=== PATIENT | male | born 1985 | race Caucasian/White ===

== ENCOUNTER 2016-07-31 02:53 | Emergency (ER) | payer SELFPAY ==
[2016-07-31 03:08] VITALS: BP 141/85; PULSE 68; RESP 16; TEMP 97.9
[2016-07-31] MEDS ORDERED: IBUPROFEN 800 MG TAB PO STA (03:20)
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
== END 2016-07-31 03:59 | disposition home or self-care (01) ==
LOC: SUPCPDRO 02:53 → EC 02:53
DX: T24.202A Burn of second degree of unspecified site of left lower limb, except ankle and foot, initial encounter (principal); F17.200 Nicotine dependence, unspecified, uncomplicated; X02.0XXA Exposure to flames in controlled fire in building or structure, initial encounter; Y99.0 Civilian activity done for income or pay; Y92.69 Other specified industrial and construction area as the place of occurrence of the external cause
CPT/HCPCS: 16020; 99283

== ENCOUNTER 2017-10-20 01:10 | Emergency (ER) | payer OTHER ==
--- NOTE | 2017-10-20 01:50 | ED ---
Wound/Laceration HPI - General Chief Complaint: Wound/Laceration Stated Complaint: Laceration-[facility] Time Seen by Provider: 10/20/17 01:24 Source: patient Mode of arrival: ambulatory Limitations: no limitations - History of Present Illness Initial Comments: 32-year-old male patient presents the emergency department for evaluation of laceration to the right middle finger. Patient states he was at work when he actually cut his finger on a saw. Patient states he is having significant pain to the finger but denies any difficulty with range of motion. Denies any numbness or tingling to the finger. Patient denies any use of blood thinners. Denies any other injuries. States his last tetanus vaccine was within 5 years. Patient denies any headache, neck pain, back pain, chest pain, shortness of breath, dizziness, weakness, abdominal pain, nausea, vomiting, or difficulties with bowel movements or urination. - Related Data Previous Rx's Medication Instructions Recorded SILVER sulfADIAZINE CREAM 1 applic TOPICAL BID PRN 10 Days 07/31/16 [Silvadene Cream] gram Allergies Allergy/AdvReac Type Severity Reaction Status Date / Time No Known Allergies Allergy Verified 10/20/17 01:16 Review of Systems ROS Statement: Those systems with pertinent positive or pertinent negative responses have been documented in the HPI. ROS Other: All systems not noted in ROS Statement are negative. Past Medical History Past Medical History: No Reported History History of Any Multi-Drug Resistant Organisms: MRSA Date of last positivie culture/infection: 2010 MDRO Source:: lower abdomen Past Surgical History: Hernia Repair Additional Past Surgical History / Comment(s): left inguinal hernia rx Past Psychological History: No Psychological Hx Reported Smoking Status: Former smoker Past Alcohol Use History: None Reported Past Drug Use History: None Reported General Exam Limitations: no limitations General appearance: alert, in no apparent distress, other (This is a well- developed, well-nourished adult male patient in no acute distress. Vital signs upon presentation are temperature 98.3F, pulse 60, respirations 18, blood pressure 125/73, pulse ox 98% on room air.) Respiratory exam: Present: normal lung sounds bilaterally. Absent: respiratory distress, wheezes, rales, rhonchi, stridor Cardiovascular Exam: Present: regular rate, normal rhythm, normal heart sounds. Absent: systolic murmur, diastolic murmur, rubs, gallop, clicks Extremities exam: Present: full ROM, normal capillary refill, other (There is a 3 cm laceration to the dorsal aspect of the right middle finger over the PIP joint. Patient has full range of motion against resistance to the finger. Skin is pink, warm, and dry. Cap refills less than 3 seconds. Radial pulses are 2+ and equal bilaterally.). Absent: normal inspection, tenderness, pedal edema, joint swelling, calf tenderness Neurological exam: Present: alert, oriented X3, CN II-XII intact Psychiatric exam: Present: normal affect, normal mood Skin exam: Present: warm, dry, intact, normal color. Absent: rash Course Vital Signs 10/20/17 01:16 Temperature 98.3 F Pulse Rate 60 Respiratory 18 Rate Blood Pressure 125/73 O2 Sat by Pulse 98 Oximetry Procedures - Laceration Laceration #1 Consent Obtained: verbal consent Time Out Performed: Yes Indication: laceration Site: hand (Right middle finger) Size (cm): 3 Description: linear Depth: simple, single layer Anesthetic Used: lidocaine 1% Anesthesia Technique: nerve block Amount (mls): 8 Pre-repair: irrigated extensively, foreign body removed (Several brass flakes) Type of Sutures: nylon Size of Sutures: 4-0 Number of Sutures: 4 Technique: simple, interrupted Patient Tolerated Procedure: well, no complications Medical Decision Making - Medical Decision Making 32-year-old male patient presented to the emergency department today for evaluation of laceration to the right middle finger. Physical examination revealed a 3 cm laceration to the dorsal aspect of the middle finger over the PIP joint. X-ray was obtained and showed no acute fracture dislocation however did show foreign bodies. Wound was irrigated extensively, did remove several brass flakes. Patient had full range of motion of the finger against resistance. Did repair the laceration as documented. Patient's tetanus is up- to-date within the last 5 years. He is instructed to follow-up with [facility] for recheck of the wound. He was educated regarding wound care and signs or symptoms of infection. He is instructed to return in 7 days for suture removal. Return parameters discussed in detail. He verbalizes understanding and agrees this plan. - Radiology Data Radiology results: report reviewed, image reviewed 3 views of the right middle finger obtained. There is small opacities in the soft tissues at the PIP joint of the middle finger consistent with foreign bodies. I see no fracture nor dislocation. Impression by Dr. Frederick shows small foreign bodies in the medial dorsal aspect of the PIP joint. No fracture seen. Disposition Clinical Impression: Laceration of finger, middle Disposition: HOME SELF-CARE Condition: Good Instructions: Care For Your Stitches (ED), Finger Laceration (ED) Additional Instructions: Keep wound clean and dry. Follow-up with [facility] for recheck. Return here in 7 days to have sutures removed. Use finger splint for comfort and support. Take Tylenol Motrin for pain control. Return here immediately for any new, worsening, or concerning symptoms. Is patient prescribed a controlled substance at d/c from ED?: No Referrals: Arthur Duran MD [Primary Care Provider] - 1-2 days Time of Disposition: 03:54
--- NOTE | 2017-10-20 02:31 | XR ---
EXAMINATION TYPE: XR finger RT DATE OF EXAM: 10/20/2017 COMPARISON: NONE HISTORY: Laceration TECHNIQUE: 3 views FINDINGS: There are small opacities in the soft tissues at the PIP joint of the middle finger consist ent with foreign bodies. I see no fracture nor dislocation. IMPRESSION: Small foreign bodies on the medial dorsal aspect of the PIP joint. No fracture seen.
[2017-10-20] MEDS ORDERED: LIDOCAINE 1% INJ 10MG/ML (20 ML MDV) SQ ONE (03:01)
[2017-10-20 04:17] VITALS: BP 116/72; PULSE 68; RESP 16; TEMP 97
== END 2017-10-20 04:05 | disposition home or self-care (01) ==
LOC: EC 01:10
DX: S61.222A Laceration with foreign body of right middle finger without damage to nail, initial encounter (principal); Z86.14 Personal history of Methicillin resistant Staphylococcus aureus infection; Z87.891 Personal history of nicotine dependence; W27.0XXA Contact with workbench tool, initial encounter; Y92.69 Other specified industrial and construction area as the place of occurrence of the external cause; Y99.0 Civilian activity done for income or pay
CPT/HCPCS: 73140; 99283; 12042; J2001

== ENCOUNTER → 2017-12-19 | Outpatient (CLI) | payer OTHER ==
--- NOTE | 2017-12-19 14:13 | XR ---
Right shoulder HISTORY: Right shoulder pain 3 views of the right shoulder Probable bone island present within the humeral head and bony glenoid. Alignment and joint spaces are maintained. Right lung apex as visualized is normal. IMPRESSION: No acute fracture or dislocation.
== END | disposition home or self-care (01) ==
LOC: RADXRMAIN 13:49
PROVIDERS: ATTEND Emergency Medicine
DX: S43.401A Unspecified sprain of right shoulder joint, initial encounter (principal)

== ENCOUNTER 2018-06-13 02:28 | Emergency (ER) | payer OTHER ==
[2018-06-13 03:06] LABS: Appearance,Urine Clear (Clear); Bacteria,Urine Rare /hpf; Bilirubin,Urine Negative (Negative); Blood,Urine Negative (Negative); Color,Urine Light Yellow; Glucose,Urine (UA) Negative (Negative); Ketones,Urine Negative (Negative); Leukocyte Esterase,Urine Negative (Negative); Nitrite,Urine Positive (Negative); Protein,Urine Negative (Negative); RBC,Urine <1 /hpf (0-5); Specific Gravity,Urine 1.005 (1.001-1.035); Urobilinogen,Urine <2.0 mg/dL (<2.0); WBC,Urine <1 /hpf (0-5)
--- NOTE | 2018-06-13 03:25 | ED ---
General Adult HPI - General Chief complaint: Urogenital Stated complaint: poss hernia, [facility] Time Seen by Provider: 06/13/18 02:43 Source: patient Mode of arrival: ambulatory Limitations: no limitations - History of Present Illness Initial comments: This patient is 33-year-old man who presents to be evaluated for pain in the abdominal wall, located in the right lower quadrant. The patient states that this is reminding him of previous inguinal hernia that he had. Patient states that he had repair of the hernia. With that hernia he did note that there was bulging and worse pain located in the abdominal wall. Patient states that mainly he was feeling some discomfort related to work. The patient states that when he is not moving or lifting it is not bothering him. He has not noted fever or chills. He is not having any gastrointestinal symptoms, including no nausea, vomiting, diarrhea or constipation. He has not had any change in urination. There is no testicular mass or swelling. No urethral discharge. MD Complaint: This patient is 33-year-old man who presents to be evaluated for pain in th -: hour(s) Location: abdomen Radiation: non-radiation Quality: dull Consistency: intermittent Improves with: none Worsens with: other Associated Symptoms: denies other symptoms - Related Data Previous Rx's Medication Instructions Recorded SILVER sulfADIAZINE CREAM 1 applic TOPICAL BID PRN 10 Days 07/31/16 [Silvadene Cream] gram Allergies Allergy/AdvReac Type Severity Reaction Status Date / Time No Known Allergies Allergy Verified 06/13/18 02:37 Review of Systems ROS Statement: Those systems with pertinent positive or pertinent negative responses have been documented in the HPI. ROS Other: All systems not noted in ROS Statement are negative. Constitutional: Denies: fever, chills Respiratory: Denies: cough, dyspnea Cardiovascular: Denies: chest pain, palpitations, edema Gastrointestinal: Reports: as per HPI, abdominal pain. Denies: nausea, vomiting , diarrhea, constipation Genitourinary: Denies: dysuria, hematuria, discharge, testicular pain, testicular mass Musculoskeletal: Denies: back pain Past Medical History Past Medical History: No Reported History History of Any Multi-Drug Resistant Organisms: MRSA Date of last positivie culture/infection: 2010 MDRO Source:: lower abdomen Past Surgical History: Hernia Repair Additional Past Surgical History / Comment(s): right inguinal hernia rx Past Psychological History: No Psychological Hx Reported Smoking Status: Former smoker Past Alcohol Use History: None Reported Past Drug Use History: None Reported General Exam Limitations: no limitations General appearance: alert, in no apparent distress Head exam: Present: atraumatic, normocephalic Respiratory exam: Present: normal lung sounds bilaterally. Absent: respiratory distress, wheezes, rales, rhonchi, stridor Cardiovascular Exam: Present: regular rate, normal rhythm, normal heart sounds. Absent: systolic murmur, diastolic murmur, rubs, gallop GI/Abdominal exam: Present: soft, normal bowel sounds. Absent: distended, tenderness, guarding, rebound, rigid, mass, pulsatile mass, hernia exam: Present: other (Declined) Extremities exam: Present: normal inspection, normal capillary refill. Absent: pedal edema, calf tenderness Back exam: Absent: CVA tenderness (R), CVA tenderness (L) Neurological exam: Present: alert Skin exam: Present: warm, dry, intact, normal color. Absent: rash Course Vital Signs 06/13/18 06/13/18 02:34 04:18 Temperature 97.7 F 97.6 F Pulse Rate 77 73 Respiratory 18 16 Rate Blood Pressure 126/72 128/71 O2 Sat by Pulse 96 98 Oximetry Medical Decision Making - Medical Decision Making Patient is 33-year-old man complaining of pain to the wall of the abdomen and the right lower quadrant. There is no finding on the exam. There is no tenderness. Discussed with the patient appropriate further care and follow-up. Discussed that in that location, there is possibility of the start of appendicitis, and that he must return if the symptoms do not resolve, or if there is any worsening. - Lab Data Lab Results 06/13/18 Range/Units 02:48 Urine Color Light Yellow Urine Appearance Clear (Clear) Urine pH 7.0 (5.0-8.0) Ur Specific [place] 1.005 (1.001-1.035) Urine Protein Negative (Negative) Urine Glucose (UA) Negative (Negative) Urine Ketones Negative (Negative) Urine Blood Negative (Negative) Urine Nitrite Positive (Negative) Urine Bilirubin Negative (Negative) Urine Urobilinogen <2.0 (<2.0) mg/dL Ur Leukocyte Esterase Negative (Negative) Urine RBC <1 (0-5) /hpf Urine WBC <1 (0-5) /hpf Urine Bacteria Rare H (None) /hpf Disposition Clinical Impression: Abdominal wall strain Disposition: HOME SELF-CARE Condition: Good Instructions (If sedation given, give patient instructions): Muscle Strain (ED) Is patient prescribed a controlled substance at d/c from ED?: No Referrals: Arthur Duran MD [Primary Care Provider] - 1-2 days
[2018-06-13 04:18] VITALS: BP 128/71; PULSE 73; RESP 16; TEMP 97.6
== END 2018-06-13 04:25 | disposition home or self-care (01) ==
LOC: EC 02:28
DX: S39.011A Strain of muscle, fascia and tendon of abdomen, initial encounter (principal); Z86.14 Personal history of Methicillin resistant Staphylococcus aureus infection; Z87.891 Personal history of nicotine dependence
CPT/HCPCS: 81001; 99284

== ENCOUNTER 2020-02-25 20:28 | Emergency (ER) | payer OTHER ==
[2020-02-25 21:10] VITALS: BP 121/70; PULSE 66; RESP 20; TEMP 97.1
[2020-02-25] MEDS ORDERED: FLUORESCEIN STRIPS 1 MG STRIP LEFT EYE ONE (21:24)
[2020-02-25] MEDS ORDERED: PROPARACAINE 0.5% OPHTH DROPS 15 ML BTL LEFT EYE STA (21:24)
[2020-02-25] MEDS ORDERED: ERYTHROMYCIN 5 MG/GM OPHTH OINT 3.5 GM TUBE LEFT EYE STA (22:03)
--- NOTE | 2020-02-25 22:05 | ED ---
Eye Problem HPI - General Chief complaint: Eye Problems Stated complaint: [facility]-metal in eye Time Seen by Provider: 02/25/20 21:24 Source: patient Mode of arrival: ambulatory Limitations: no limitations - History of Present Illness Initial comments: Patient is a 35-year-old male presenting to the emergency Department complaints of a possible foreign object in his left eye from work yesterday. Patient states he noticed a little bit of irritation yesterday, thought it would just work itself out. Patient states he woke up this morning and is having more irritation of his left eye and feels like there is a foreign body in there. He is having some tears, no other discharge. He denies any changes in vision. He denies any significant eye pain just the irritation. He states his tetanus vaccine is up-to-date. He has no further complaints at this time. - Related Data Home Medications Medication Instructions Recorded Confirmed Venlafaxine HCl [Effexor XR] 150 mg PO DAILY 02/25/20 02/25/20 Allergies Allergy/AdvReac Type Severity Reaction Status Date / Time No Known Allergies Allergy Verified 02/25/20 22:19 Review of Systems ROS Statement: Those systems with pertinent positive or pertinent negative responses have been documented in the HPI. ROS Other: All systems not noted in ROS Statement are negative. Past Medical History Past Medical History: No Reported History History of Any Multi-Drug Resistant Organisms: MRSA Date of last positivie culture/infection: 2010 MDRO Source:: lower abdomen Past Surgical History: Hernia Repair Additional Past Surgical History / Comment(s): right inguinal hernia rx Past Psychological History: No Psychological Hx Reported Smoking Status: Never smoker Past Alcohol Use History: None Reported Past Drug Use History: None Reported General Exam - General Exam Comments Initial Comments: GENERAL: Patient is well-developed and well-nourished. Patient is nontoxic and in no acute distress. HEAD: Atraumatic, normocephalic. EYES: Pupils equal round and reactive to light, extraocular movements intact, sclera anicteric. Eyelids were unremarkable. Slight injection of the left eye, there is a foreign body present at the 3 o'clock position on the cornea. There is a small corneal abrasion on staining area under fluorescein stain. ENT: TMs normal, nares patent, oropharynx clear without exudates. Moist mucous membranes. NECK: Normal range of motion, supple without lymphadenopathy or JVD. LUNGS: Unlabored respirations. Breath sounds clear to auscultation bilaterally and equal. No wheezes rales or rhonchi. HEART: Regular rate and rhythm without murmurs, rubs or gallops. ABDOMEN: Soft, nontender, normoactive bowel sounds. No guarding, no rebound. No masses appreciated. : Deferred MUSCULOSKELETAL: Normal extremities with adequate strength and normal range of motion, no pitting or edema. No clubbing or cyanosis. NEUROLOGICAL: Patient is alert and oriented x 3. Normal speech, normal gait. PSYCH: Normal mood, normal affect. SKIN: Warm, Dry, normal turgor, no rashes or lesions noted. Limitations: no limitations Course Vital Signs 02/25/20 21:08 Temperature 97.1 F L Pulse Rate 66 Respiratory 20 Rate Blood Pressure 121/70 O2 Sat by Pulse 99 Oximetry Procedures - Forgein Body Removal Eye Site: Left Location in eye(s): 3 o'clock position Anesthetic Used: Proparacaine Eye Exam Technique: Sragent Lamp, Fluorescein Foreign Body Suspected: Metal Forgein Body Removal Technique: Cotton Swab, Irrigation, Needle Remaining Debris: No Patient Tolerated: well Medical Decision Making - Medical Decision Making Patient is a 35-year-old male here with a foreign body in his left eye since yesterday. He is up-to-date with his tetanus vaccine. I was able to see a foreign body at the 3 o'clock position on his cornea. I was able to remove this using a Q-tip in the end of the needle. Patient tolerated procedure well. I will treat him with erythromycin ointment for corneal abrasion. If symptoms persist sees a follow-up with his eye doctor. Patient is agreeable with this plan of care. He is stable for discharge. Disposition Clinical Impression: Left corneal abrasion, Foreign body of left eye Disposition: HOME SELF-CARE Condition: Stable Instructions (If sedation given, give patient instructions): Corneal Abrasion (ED) Additional Instructions: Please return to the Emergency Department if symptoms worsen or any other concerns. Use antibiotic ointment as prescribed, 4 times daily for 5 days. If symptoms persist, follow-up with eye doctor. Is patient prescribed a controlled substance at d/c from ED?: No Referrals: Arthur Duran MD [Primary Care Provider] - 1-2 days
== END 2020-02-25 22:25 | disposition home or self-care (01) ==
LOC: EC 20:28
DX: T15.02XA Foreign body in cornea, left eye, initial encounter (principal); Y99.0 Civilian activity done for income or pay; Y92.69 Other specified industrial and construction area as the place of occurrence of the external cause; Z86.14 Personal history of Methicillin resistant Staphylococcus aureus infection
CPT/HCPCS: 65220; 99283

== ENCOUNTER 2020-06-07 19:37 | Emergency (ER) | payer OTHER ==
[2020-06-07 19:43] VITALS: TEMP 98.3
[2020-06-07] MEDS ORDERED: SODIUM CHLORIDE 0.9% 1,000 ML IV STA (19:52)
--- NOTE | 2020-06-07 19:57 | ED ---
General Adult HPI - General Chief complaint: Arrhythmia/Palpitations Stated complaint: [facility] really hyper Time Seen by Provider: 06/07/20 19:44 Source: patient Mode of arrival: ambulatory Limitations: no limitations - History of Present Illness Initial comments: 35 year-old male patient presents to the emergency department for evaluation after having an episode of racing heart, sweating, and dizziness. Patient states that he was feeling good. He arrived at work, states he felt like his heart was racing, he started to poor sweat, and felt really woozy. He states he has had similar symptoms intermittently in the past, but denies every having been evaluated for them. States that on his way to work he did drink a monster. States he usually has 5 energy drinks per day. Admits to smoking marijuana. He is not treated for any medical conditions. Denies any chest pain or shortness of breath with this. Denies any cough or congestion. Patient denies any recent rash, fever, chills, cough, abdominal pain, nausea, vomiting, diarrhea, constipation, back pain, numbness, tingling, hematuria, dysuria, urinary urgency, urinary frequency, headache, visual changes, or any other complaints. - Related Data Home Medications Medication Instructions Recorded Confirmed Venlafaxine HCl [Effexor XR] 150 mg PO DAILY 02/25/20 06/07/20 Fluticasone Nasal [place] [Flonase 1 spray EA NOSTRIL DAILY PRN 06/07/20 06/07/20 Nasal [place]] Loratadine [Claritin] 10 mg PO DAILY PRN 06/07/20 06/07/20 Allergies Allergy/AdvReac Type Severity Reaction Status Date / Time No Known Allergies Allergy Verified 06/07/20 20:06 Review of Systems ROS Statement: Those systems with pertinent positive or pertinent negative responses have been documented in the HPI. ROS Other: All systems not noted in ROS Statement are negative. Past Medical History Past Medical History: No Reported History History of Any Multi-Drug Resistant Organisms: MRSA Date of last positivie culture/infection: 2010 MDRO Source:: lower abdomen Past Surgical History: Hernia Repair Additional Past Surgical History / Comment(s): right inguinal hernia rx Past Psychological History: No Psychological Hx Reported Smoking Status: Never smoker Past Alcohol Use History: None Reported Past Drug Use History: None Reported General Exam Limitations: no limitations General appearance: alert, in no apparent distress, other (this is a well- developed, well-nourished adult male patient in no acute distress.) Eye exam: Present: normal appearance, PERRL, EOMI. Absent: scleral icterus, conjunctival injection, periorbital swelling ENT exam: Present: normal exam, normal oropharynx, mucous membranes moist Respiratory exam: Present: normal lung sounds bilaterally. Absent: respiratory distress, wheezes, rales, rhonchi, stridor Cardiovascular Exam: Present: regular rate, normal rhythm, normal heart sounds. Absent: systolic murmur, diastolic murmur, rubs, gallop, clicks GI/Abdominal exam: Present: soft, normal bowel sounds. Absent: distended, tenderness, guarding, rebound, rigid Neurological exam: Present: alert, oriented X3, CN II-XII intact Psychiatric exam: Present: normal affect, normal mood Skin exam: Present: warm, dry, intact, normal color. Absent: rash Course Vital Signs 06/07/20 19:41 Temperature 98.3 F Pulse Rate 94 Respiratory 20 Rate Blood Pressure 127/80 O2 Sat by Pulse 90 L Oximetry EKG Findings - EKG Comments: EKG Findings:: EKG obtained at 2019 shows normal sinus rhythm. Ventricular 74, NE interval 162, QRS duration 100, QT 390, QTC 432. No evidence of ST elevation or depression. Medical Decision Making - Medical Decision Making 35-year-old male patient presents to the emergency department today for evaluation of palpitations, sweats, dizziness. Physical examination is unremarkable. Lungs are clear to auscultation with good air movements. Heart sounds were normal. Labs reviewed and are unremarkable. Patient did have decreased oxygen saturations while in the department. We performed ABG which wasunremarkable. CT chest angiography was obtained and was negative. Patient's oxygen saturation did improve to 100% on room air. He'll be discharged to follow-up with his primary care physician for recheck in 1-2 days. He is urged to discuss Holter monitoring. We did discuss decrease in energy drink intake. Return parameters were discussed in detail. He verbalizes understanding and agrees with this plan. Case discussed with my attending Dr. Cespedes. - Lab Data Result diagrams: 06/07/20 20:30 06/07/20 20:30 Lab Results 06/07/20 06/07/20 06/07/20 Range/Units 20:30 20:30 20:30 WBC 8.5 (3.8-10.6) k/uL RBC 4.43 (4.30-5.90) m/uL Hgb 14.3 (13.0-17.5) gm/dL Hct 41.6 (39.0-53.0) % MCV 93.8 (80.0-100.0) fL MCH 32.4 (25.0-35.0) pg MCHC 34.5 (31.0-37.0) g/dL RDW 12.8 (11.5-15.5) % Plt Count 201 (150-450) k/uL MPV 7.2 Neutrophils % 72 % Lymphocytes % 20 % Monocytes % 5 % Eosinophils % 1 % Basophils % 0 % Neutrophils # 6.1 (1.3-7.7) k/uL Lymphocytes # 1.7 (1.0-4.8) k/uL Monocytes # 0.4 (0-1.0) k/uL Eosinophils # 0.1 (0-0.7) k/uL Basophils # 0.0 (0-0.2) k/uL PT 10.1 (9.0-12.0) sec INR 0.9 (<1.2) APTT 23.9 (22.0-30.0) sec Sample Site ABG pH (7.35-7.45) ABG pCO2 (35-45) mmHg ABG pO2 (83-108) mmHg ABG HCO3 (21-25) mmol/L ABG Total CO2 (19-24) mmol/L ABG O2 Saturation (94-97) % ABG Base Excess mmol/L Jerry Test FiO2 % Sodium 137 (137-145) mmol/L Potassium 3.7 (3.5-5.1) mmol/L Chloride 104 (98-107) mmol/L Carbon Dioxide 28 (22-30) mmol/L Anion Gap 5 mmol/L BUN 14 (9-20) mg/dL Creatinine 1.03 (0.66-1.25) mg/dL Est GFR (CKD-EPI)AfAm >90 (>60 ml/min/1.73 sqM) Est GFR (CKD-EPI)NonAf >90 (>60 ml/min/1.73 sqM) Glucose 97 (74-99) mg/dL Calcium 9.1 (8.4-10.2) mg/dL Magnesium 1.9 (1.6-2.3) mg/dL Total Bilirubin 0.4 (0.2-1.3) mg/dL AST 31 (17-59) U/L ALT 38 (4-49) U/L Alkaline Phosphatase 56 (38-126) U/L Troponin I (0.000-0.034) ng/mL Total Protein 6.7 (6.3-8.2) g/dL Albumin 4.1 (3.5-5.0) g/dL TSH 1.320 (0.465-4.680) mIU/L Urine Color Urine Appearance (Clear) Urine pH (5.0-8.0) Ur Specific [place] (1.001-1.035) Urine Protein (Negative) Urine Glucose (UA) (Negative) Urine Ketones (Negative) Urine Blood (Negative) Urine Nitrite (Negative) Urine Bilirubin (Negative) Urine Urobilinogen (<2.0) mg/dL Ur Leukocyte Esterase (Negative) Urine Opiates Screen (NotDetected) Ur Oxycodone Screen (NotDetected) Urine Methadone Screen (NotDetected) Ur Propoxyphene Screen (NotDetected) Ur Barbiturates Screen (NotDetected) U Tricyclic Antidepress (NotDetected) Ur Phencyclidine Scrn (NotDetected) Ur Amphetamines Screen (NotDetected) U Methamphetamines Scrn (NotDetected) U Benzodiazepines Scrn (NotDetected) Urine Cocaine Screen (NotDetected) U Marijuana (THC) Screen (NotDetected) 06/07/20 06/07/20 06/07/20 Range/Units 20:30 20:52 21:55 WBC (3.8-10.6) k/uL RBC (4.30-5.90) m/uL Hgb (13.0-17.5) gm/dL Hct (39.0-53.0) % MCV (80.0-100.0) fL MCH (25.0-35.0) pg MCHC (31.0-37.0) g/dL RDW (11.5-15.5) % Plt Count (150-450) k/uL MPV Neutrophils % % Lymphocytes % % Monocytes % % Eosinophils % % Basophils % % Neutrophils # (1.3-7.7) k/uL Lymphocytes # (1.0-4.8) k/uL Monocytes # (0-1.0) k/uL Eosinophils # (0-0.7) k/uL Basophils # (0-0.2) k/uL PT (9.0-12.0) sec INR (<1.2) APTT (22.0-30.0) sec Sample Site Right Radial ABG pH 7.38 (7.35-7.45) ABG pCO2 47 H (35-45) mmHg ABG pO2 152 H (83-108) mmHg ABG HCO3 28 H (21-25) mmol/L ABG Total CO2 29 H (19-24) mmol/L ABG O2 Saturation 98.5 H (94-97) % ABG Base Excess 2.6 mmol/L Jerry Test Yes FiO2 36 % Sodium (137-145) mmol/L Potassium (3.5-5.1) mmol/L Chloride (98-107) mmol/L Carbon Dioxide (22-30) mmol/L Anion Gap mmol/L BUN (9-20) mg/dL Creatinine (0.66-1.25) mg/dL Est GFR (CKD-EPI)AfAm (>60 ml/min/1.73 sqM) Est GFR (CKD-EPI)NonAf (>60 ml/min/1.73 sqM) Glucose (74-99) mg/dL Calcium (8.4-10.2) mg/dL Magnesium (1.6-2.3) mg/dL Total Bilirubin (0.2-1.3) mg/dL AST (17-59) U/L ALT (4-49) U/L Alkaline Phosphatase (38-126) U/L Troponin I <0.012 (0.000-0.034) ng/mL Total Protein (6.3-8.2) g/dL Albumin (3.5-5.0) g/dL TSH (0.465-4.680) mIU/L Urine Color Yellow Urine Appearance Clear (Clear) Urine pH 6.5 (5.0-8.0) Ur Specific [place] 1.025 (1.001-1.035) Urine Protein Negative (Negative) Urine Glucose (UA) Negative (Negative) Urine Ketones Negative (Negative) Urine Blood Negative (Negative) Urine Nitrite Negative (Negative) Urine Bilirubin Negative (Negative) Urine Urobilinogen <2.0 (<2.0) mg/dL Ur Leukocyte Esterase Negative (Negative) Urine Opiates Screen Not Detected (NotDetected) Ur Oxycodone Screen Not Detected (NotDetected) Urine Methadone Screen Not Detected (NotDetected) Ur Propoxyphene Screen Not Detected (NotDetected) Ur Barbiturates Screen Not Detected (NotDetected) U Tricyclic Antidepress Not Detected (NotDetected) Ur Phencyclidine Scrn Not Detected (NotDetected) Ur Amphetamines Screen Not Detected (NotDetected) U Methamphetamines Scrn Not Detected (NotDetected) U Benzodiazepines Scrn Not Detected (NotDetected) Urine Cocaine Screen Not Detected (NotDetected) U Marijuana (THC) Screen Detected H (NotDetected) - Radiology Data Radiology results: report reviewed, image reviewed Two-view x-ray of the chest is obtained. Report was reviewed entirety. Impression by Dr. Frederick shows normal chest. Normal heart. CT chest angio for PE was obtained. Report was reviewed in its entirety. Impre ssion by Dr. Frederick shows negative exam. No evidence of pulmonary embolism. Disposition Clinical Impression: Palpitations Disposition: HOME SELF-CARE Condition: Good Instructions (If sedation given, give patient instructions): Heart Palpitations (ED) Additional Instructions: operative primary care physician for recheck in one to days. Discussed having a heart monitor placed. Return to the emergency department for any new, worsening, or concerning symptoms. Is patient prescribed a controlled substance at d/c from ED?: No Referrals: Arthur Duran MD [Primary Care Provider] - 1-2 days Time of Disposition: 22:18
--- NOTE | 2020-06-07 20:41 | XR ---
EXAMINATION TYPE: XR chest 2V DATE OF EXAM: 06/07/2020 COMPARISON: NONE HISTORY: Weakness TECHNIQUE: 2 views FINDINGS: Heart and mediastinum are normal. Lungs are clear. Diaphragm is normal. Bony thorax appears normal. IMPRESSION: Normal chest. Normal heart.
[2020-06-07 20:43] LABS: Basophils % (A) 0 %; Eosinophils # (A) 0.1 k/uL (0-0.7); Eosinophils % (A) 1 %; HCT 41.6 % (39.0-53.0); HGB 14.3 gm/dL (13.0-17.5); Lymphocytes # (A) 1.7 k/uL (1.0-4.8); Lymphocytes % (A) 20 %; MCH 32.4 pg (25.0-35.0); MCHC 34.5 g/dL (31.0-37.0); MCV 93.8 fL (80.0-100.0); Mean Platelet Volume 7.2; Monocytes # (A) 0.4 k/uL (0-1.0); Monocytes % (A) 5 %; Neutrophils # (A) 6.1 k/uL (1.3-7.7); Neutrophils % (A) 72 %; Platelet Count 201 k/uL (150-450); RBC 4.43 m/uL (4.30-5.90); RDW 12.8 % (11.5-15.5); WBC 8.5 k/uL (3.8-10.6)
[2020-06-07 20:53] LABS: INR 0.9 (<1.2); Partial Thromboplastin Time 23.9 sec (22.0-30.0); Prothrombin Time 10.1 sec (9.0-12.0)
[2020-06-07 20:54] LABS: ALT 38 U/L (4-49); AST 31 U/L (17-59); African American GFR (CKD) >90 (>60 ml/min/1.73 sqM); Albumin 4.1 g/dL (3.5-5.0); Alkaline Phosphatase 56 U/L (38-126); Anion Gap 5 mmol/L; Blood Urea Nitrogen 14 mg/dL (9-20); Calcium 9.1 mg/dL (8.4-10.2); Carbon Dioxide 28 mmol/L (22-30); Chloride 104 mmol/L (98-107); Glucose 97 mg/dL (74-99); Magnesium 1.9 mg/dL (1.6-2.3); Non-African American GFR(CKD) >90 (>60 ml/min/1.73 sqM); Potassium 3.7 mmol/L (3.5-5.1); Sodium 137 mmol/L (137-145); Total Bilirubin 0.4 mg/dL (0.2-1.3); Total Protein 6.7 g/dL (6.3-8.2)
[2020-06-07 21:27] LABS: Appearance,Urine Clear (Clear); Bilirubin,Urine Negative (Negative); Blood,Urine Negative (Negative); Color,Urine Yellow; Glucose,Urine (UA) Negative (Negative); Ketones,Urine Negative (Negative); Leukocyte Esterase,Urine Negative (Negative); Nitrite,Urine Negative (Negative); PH, Urine 6.5 (5.0-8.0); Protein,Urine Negative (Negative); Specific Gravity,Urine 1.025 (1.001-1.035); Urobilinogen,Urine <2.0 mg/dL (<2.0)
[2020-06-07 21:37] LABS: Amphetamine Screen,Urine Not Detected (NotDetected); Barbiturate Screen,Urine Not Detected (NotDetected); Benzodiazepines Screen,Urine Not Detected (NotDetected); Cocaine Screen,Urine Not Detected (NotDetected); Methadone Screen, Urine Not Detected (NotDetected); Opiate Screen,Urine Not Detected (NotDetected); Oxycodone Screen, Urine Not Detected (NotDetected); Phencyclidine Screen,Urine Not Detected (NotDetected); Tricyclic Antidepressant,Urine Not Detected (NotDetected); Urn Cannabinoid Scrn Detected (NotDetected)
[2020-06-07 21:58] LABS: ABG Base Excess 2.6 mmol/L; ABG HCO3 28 mmol/L (21-25); ABG Oxygen Saturation 98.5 % (94-97); ABG PCO2 47 mmHg (35-45); ABG PH 7.38 (7.35-7.45); ABG PO2 152 mmHg (83-108); ABG TCO2 29 mmol/L (19-24); Allen Test Performed? Yes
--- NOTE | 2020-06-07 22:04 | CT ---
EXAMINATION TYPE: CT chest angio for PE DATE OF EXAM: 06/07/2020 COMPARISON: None HISTORY: Hypoxia, anxiety. No cardiac hx. CT DLP: 530.7 mGycm Automated exposure control for dose reduction was used. CONTRAST: Performed with IV Contrast, patient injected with 100 mL of Isovue 370. Images obtained from the thoracic inlet to the diaphragm with IV contrast and 3-D post processed imag es. The lungs are clear of infiltrate. There is no evidence of a pulmonary mass. There is no pleural effu sonja. There is no pericardial effusion. There is no mediastinal adenopathy. There are no hilar masses. Heart size is normal. There is normal contrast opacification of the pulmonary arteries. There are no filling defects. Bony thorax is intact. Upper abdominal soft tissues are intact. IMPRESSION: Negative exam. No evidence of pulmonary embolism.
[2020-06-07 22:27] VITALS: BP 120/76; PULSE 71; RESP 16
== END 2020-06-07 22:30 | disposition home or self-care (01) ==
LOC: EC 19:37
DX: R00.2 Palpitations (principal); R42 Dizziness and giddiness; Z86.14 Personal history of Methicillin resistant Staphylococcus aureus infection
CPT/HCPCS: 99285; 36415; 36600; 93005; 80053; 84443; 82805; 83735; 84484; 85025; 85610; 85730; 81003; 80306; 71046; 71275; Q9967